=== PATIENT | female | born 1955 | race American Indian/Alaskan Native ===

== ENCOUNTER 2020-11-26 10:57 | Emergency (ER) | payer MEDICARE ==
[2020-11-26 11:22] VITALS: BP 124/68
[2020-11-26 11:43] LABS: Bilirubin,Urine NEG (Negative); Blood,Urine SM (Negative); Color,Urine Amber (Yellow); Mucus,Urine 3+ /HPF
[2020-11-26 11:46] LABS: WBC,Urine > 182.0 /HPF (0.0-6.0)
--- NOTE | 2020-11-26 12:15 | Emergency Department Report ---
ED General Adult HPI - General Chief complaint: Urogenital-Female Stated complaint: UTI Time Seen by Provider: 11/26/20 11:35 Source: patient Mode of arrival: Ambulatory Limitations: No Limitations - History of Present Illness Initial comments: 65-year-old -[place] female patient with history of HLD, hypertension, and hypothyroidism presents with dysuria starting this morning. She denies any abdominal pain, fever/chills/sweats, hematuria, or flank pain. -: Sudden Severity scale (0 -10): 0 Quality: burning Consistency: intermittent - Related Data Previous Rx's Medication Instructions Recorded Last Taken Type Nitrofurantoin Nye/M-Cryst 100 mg PO Q12HR 5 Days #10 capsule 11/26/20 Unknown Rx [Macrobid CAP] Allergies Allergy/AdvReac Type Severity Reaction Status Date / Time lisinopril AdvReac Unknown Verified 11/26/20 11:17 ED Review of Systems ROS: Stated complaint: UTI Other details as noted in HPI Constitutional: denies: chills, diaphoresis, fever, malaise Gastrointestinal: denies: abdominal pain, nausea, vomiting Genitourinary: urgency, dysuria, frequency. denies: hematuria, discharge Musculoskeletal: denies: back pain Skin: denies: change in color ED Past Medical Hx - Past Medical History Hx Hypertension: Yes Additional medical history: THYROID/ CHOLESTROL - Surgical History Past Surgical History?: No - Medications Home Medications: Home Medications Medication Instructions Recorded Confirmed Last Taken Type Nitrofurantoin Nye/M-Cryst 100 mg PO Q12HR 5 Days #10 capsule 11/26/20 Unknown Rx [Macrobid CAP] ED Physical Exam - General Limitations: No Limitations General appearance: alert, in no apparent distress - Head Head exam: Present: atraumatic, normocephalic - Eye Eye exam: Present: normal appearance - Respiratory Respiratory exam: Present: normal lung sounds bilaterally. Absent: respiratory distress - Cardiovascular Cardiovascular Exam: Present: regular rate, normal rhythm - GI/Abdominal GI/Abdominal exam: Present: soft. Absent: tenderness - Back Exam Back exam: Absent: CVA tenderness (R), CVA tenderness (L) - Neurological Exam Neurological exam: Present: alert, oriented X3 - Psychiatric Psychiatric exam: Present: normal affect, normal mood - Skin Skin exam: Present: warm, dry, intact, normal color. Absent: rash ED Course Vital Signs 11/26/20 11:19 Temperature 98.6 F Pulse Rate 79 Respiratory 20 Rate Blood Pressure 124/68 [Right] O2 Sat by Pulse 98 Oximetry ED Medical Decision Making - Lab Data Lab Results 11/26/20 Range/Units Unknown Urine Color Dottie (Yellow) Urine Turbidity Cloudy (Clear) Urine pH 6.0 (5.0-7.0) Ur Specific [place] 1.024 (1.003-1.030) Urine Protein 100 mg/dl (Negative) mg/dL Urine Glucose (UA) Neg (Negative) mg/dL Urine Ketones Tr (Negative) mg/dL Urine Blood Sm (Negative) Urine Nitrite Neg (Negative) Urine Bilirubin Neg (Negative) Urine Urobilinogen 2.0 (<2.0) mg/dL Ur Leukocyte Esterase Lg (Negative) Urine WBC (Auto) > 182.0 H (0.0-6.0) /HPF Urine RBC (Auto) 46.0 (0.0-6.0) /HPF U Epithel Cells (Auto) 2.0 (0-13.0) /HPF Urine WBC Clumps 2+ /HPF Urine Mucus 3+ /HPF - Medical Decision Making UA shows greater than 182 WBCs. Urine culture sent. No CVA tenderness or abdominal tenderness noted on exam. Patient's vitals are normal, she is well- appearing, she is stable for discharge home. We will treat her UTI with Macrobid. She is to follow-up with her primary care doctor in 3 to 5 days. Discussed signs and symptoms that should prompt immediate return to the emergency department in detail with patient who verbalized understanding. Critical care attestation.: If time is entered above; I have spent that time in minutes in the direct care of this critically ill patient, excluding procedure time. ED Disposition Clinical Impression: UTI (urinary tract infection) Disposition: DC-01 TO HOME OR SELFCARE Is pt being admited?: No Condition: Stable Instructions: Urinary Tract Infection, Adult Prescriptions: Nitrofurantoin Nye/M-Cryst [Macrobid CAP] 100 mg PO Q12HR 5 Days #10 capsule Referrals: PRIMARY CARE, [Primary Care Provider] - 3-5 Days
== END 2020-11-26 12:10 | disposition home or self-care (01) ==
LOC: ED 10:57
DX: N39.0 Urinary tract infection, site not specified (principal); I10 Essential (primary) hypertension; Z79.899 Other long term (current) drug therapy
CPT/HCPCS: 81001; 99283